=== PATIENT | male | born 1975 | race Caucasian/White ===

== ENCOUNTER 2020-03-19 12:05 | Emergency (ER) | payer SELFPAY ==
[2020-03-19 12:42] VITALS: BP 127/86; PULSE 84; RESP 20; TEMP 36.7; O2SAT 100; BMI 20.9
--- NOTE | 2020-03-19 12:48 | ED.GENADULT ---
HPI - General Adult General Chief complaint: General Medical Stated complaint: Withdrawal Time Seen by Provider: 03/19/20 12:48 Source: patient Mode of arrival: ambulatory Limitations: no limitations History of Present Illness HPI narrative: 44-year-old male with history of opiate abuse issues heroin 2 days ago and since has been having withdrawal symptoms here seeking detox. States has had some myalgias and diarrhea. No chest pain shortness of breath. Onset (ago): day(s) Treatments prior to arrival: none Related Data Allergies Allergy/AdvReac Type Severity Reaction Status Date / Time No Known Allergies Allergy Verified 03/19/20 12:48 Review of Systems Review of Systems: Constitutional: No Weight loss, No Fever, No Chills, No Night Sweats, No Fatigue, No Malaise ENT/Mouth: No Hearing loss, No Ear Pain, No Nasal Congestion, No Sinus Pain, No Hoarseness, No sore throat, No Rhinorrhea, No Swallowing Difficulty Eyes: No Eye Pain, No Swelling, No Redness, No Foreign Body, No Discharge, No Vision Changes Cardiovascular: No Chest Pain, No SOB, No Dyspnea on Exertion, No Orthopnea, No Edema, No Palpitations Respiratory: No Cough, No Sputum, No Wheezing, No Smoke Exposure, No Dyspnea Gastrointestinal: No Nausea, No Vomiting, + Diarrhea, No Constipation, No abdominal Pain, No Hematochezia, No Melena Genitourinary: no irregular bleeding, No Dysuria, No Urinary Frequency, No Hematuria, No Urinary Incontinence, No Urgency, No Flank Pain, No Urinary Flow Changes, No Hesitancy Musculoskeletal: No joint pain, + Myalgias, No Joint Swelling Skin: No Skin Lesions, No rash Neuro: No Weakness, No Numbness, No Paresthesias, No Loss of Consciousness, No Dizziness, No Headache Psych: No Anxiety/Panic, No Depression, No SI/HI/AH/VH, No Social Issues, Heme/Lymph: No Bruising, No Bleeding,No Lymphadenopathy Endocrine: No Polyuria, No Polydipsia, No Temperature Intolerance Yes all other systems are reviewed and are negative FOR[facility]LY [facility], [facility] Past Medical History Medical History (Updated 03/19/20 @ 16:15 by Abdelrahman Bucio NP) Opioid abuse Surgical History (Updated 03/19/20 @ 12:45 by Farhana Sellers) No pertinent past surgical history Social History Social History Advance Directives: No Advance Directives Information Provided: No Physical Exam Vital Signs: Vital Signs: Last Vital Signs Temp 98.0 F 03/19/20 12:42 Pulse 84 03/19/20 12:53 Resp 20 03/19/20 12:42 BP 127/86 03/19/20 12:53 Pulse Ox 100 03/19/20 12:42 Body Mass Index 20.9 REVIEWED Const: General: cooperative and healthy appearing; No acute distress or intoxicated appearing Nutritional Appearance: average body habitus Orientation/consciousness: patient oriented x3 HENMT: Head: Yes normal to inspection Ears: hearing grossly normal bilaterally Eyes: General: appearance normal, both eyes and all related structures Visual Hooks: normal visual hooks by confrontation Neck: Neck: Yes normal visual inspection, No positive Brudzinski's sign, No positive Kernig's sign and No tender Thyroid: Thyroid normal Chest: Chest palpation & inspection: normal inspection of the chest Resp: Effort & Inspection: normal respiratory effort Auscultation: clear to auscultation bilaterally Cardio: Jugular venous distension: no JVD Rate: regular rate Rhythm: regular rhythm Heart sounds: S1 normal heart sound present and S2 normal heart sound present GI: Inspection: Yes normal to inspection Percussion: Yes normal to percussion Auscultation: normal bowel sounds : General: Yes no CVA tenderness Back/Spine/Pelvis: Back: no CVA tenderness Skin: General skin exam: no rashes or lesions noted Neuro: General: patient oriented x3 Extrem: General: Yes normal to inspection Course Course Course Narrative: Met with monomer recovery supervisor secure bed for [facility] at 21:00 does not want to wait here will go home gathered his belongings with the family and go directly to detox. Medical Decision Making Lab Data Labs: Lab Results 03/19/20 Range/Units 12:56 Urine Opiates Screen Not Detected (Not Detect) Ur Barbiturates Screen Not Detected (Not Detect) Ur Phencyclidine Scrn Not Detected (Not Detect) Ur Amphetamines Screen Not Detected (Not Detect) U Benzodiazepines Scrn Not Detected (Not Detect) Urine Cocaine Screen POSITIVE H (Not Detect) U Marijuana (THC) Screen Not Detected (Not Detect) Discharge Plan Discharge Clinical Impression: Opiate abuse, continuous Patient Disposition: Home, Self-Care Instructions: Narcotic Withdrawal (ED), Polysubstance Abuse (ED) Additional Instructions: Go directly to detox Referrals: Physician,None [Primary Care Provider] - 1 day ([facility] detox at 21:00 tonight)
[2020-03-19 12:53] VITALS: BP 127/86; PULSE 84
[2020-03-19] MEDS: cloNIDine HCL 0.1 MG TABLET PO (12:53)
[2020-03-19 13:33] LABS: Amphetamine Screen Urine Not Detected (Not Detect); Barbiturates, Urine Not Detected (Not Detect); Benzodiazepines Screen Urine Not Detected (Not Detect); Cannabinoid Screen Urine Not Detected (Not Detect); Cocaine Screen Urine POSITIVE (Not Detect); Opiate Screen Urine Not Detected (Not Detect); Phencyclidine Screen Urine Not Detected (Not Detect)
--- NOTE | 2020-03-19 14:09 | MHC.RECOVSUP ---
Recovery Support note: Patient is a 44 year old [place] speaking male who presented to [facility] ED due to opiate withdrawal. This magnetic tape typewriter operator met with patient with an [facility] real estate office manager. Patient reports he last used two days ago and that he feels like he is dying. Explained to patient that detox would be the best form of care for him at this point and patient expressed interest in going to detox. Patient completed phone intake and has an admission scheduled for 2100. Patient did not want to remain in the hospital, stating he cannot breath with his mask on. Patient called his sister to pick him up and reports he will get to [place] on his own at 2100. Provided patient with the address and number for [place].
== END 2020-03-19 16:30 | disposition home or self-care (01) ==
PROVIDERS: Nurse Practitioner Primary Care; Emergency Provider Emergency Medicine
DX: F11.13 Opioid abuse with withdrawal (principal); F19.10 Other psychoactive substance abuse, uncomplicated
CPT/HCPCS: 80307; 99283